=== PATIENT | female | born 1975 | race Caucasian/White ===

== ENCOUNTER → 2020-11-18 06:59 | Outpatient (CLI) | payer OTHER, SELFPAY ==
--- NOTE | 2020-11-18 | DI.MRI.S_ITS ---
PROCEDURE: MR HEAD/BRAIN WO/W CON INDICATIONS: Unspecified convulsions TECHNIQUE: Noncontrast axial T1 spin echo, axial T2 fast spin echo, sagittal and axial FLAIR, coronal T2 fast spin echo, axial gradient echo, axial diffusion and ADC through the brain. After the administration of contrast, axial and coronal 3D VIBE or T1 spin echo with fat saturation through the brain. Thin section, high-resolution coronal T2 weighted images obtained through the hippocampi. COMPARISON: None. FINDINGS: Image quality: Excellent. CSF Spaces: Basal cisterns are patent. No extra-axial fluid collections. Ventricles are normal in size and shape. Brain: No midline shift. No intracranial bleeds or masses. No abnormal intracranial enhancement. The brainstem appears normal. Diffusion-weighted images demonstrate no acute ischemic insults. No chronic ischemic insults. Normal intravascular flow voids are present. Dural sinuses demonstrate normal postcontrast enhancement. Hippocampi have normal and symmetric volume. Internal hippocampal architecture is normal. No abnormal signal and in the hippocampi. Skull and face: Calvarial marrow is normal in signal. Orbits appear normal. Sinuses: Sinuses and mastoids appear clear. IMPRESSION: 1. 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 2. No acute infarcts. 3. No abnormal intracranial mass or mass effect. 4. No suspicious postcontrast enhancement. Dictated by: Maria Luisa Saul MD, PhD on 11/18/2020 at 9:08 Approved by: Maria Luisa Saul MD, PhD on 11/18/2020 at 9:13
== END ==
PROVIDERS: Referring Provider Psychiatry & Neurology Neurology; Visit Provider Psychiatry & Neurology Neurology
DX: G93.89 Other specified disorders of brain (principal); R56.9 Unspecified convulsions
CPT/HCPCS: 70553